=== PATIENT | female | born 1965 | race Caucasian/White ===

== ENCOUNTER → 2017-11-14 11:14 | Outpatient (CLI) | payer BC, SELFPAY ==
--- NOTE | 2017-11-14 13:43 | DI.REPORT_ITS ---
SYMPTOMS/DIAGNOSIS: CHRONIC LOW BACK PAIN, M54.6, NOTICEABLY WORSE LAST 6 MONTHS LUMBAR SPINE: AP, lateral and bilateral oblique views. There is a mild left convex curvature of the spine. No spondylolysis or spondylolisthesis is seen. Multilevel disc space narrowing is seen. There is a vacuum disc at L5-S1. Endplate osteophytes are present throughout the lumbar spine. There are degenerative changes of the facets. No acute fractures or subluxations are seen. Note is made of surgical clips in the right upper quadrant of the abdomen , likely reflecting a prior cholecystectomy. IMPRESSION: Moderate degenerative changes in the lumbar spine.
== END ==
PROVIDERS: PCP Family Medicine; Visit Provider Family Medicine
DX: M54.6 Pain in thoracic spine (principal); M51.16 Intervertebral disc disorders with radiculopathy, lumbar region
CPT/HCPCS: 72110

== ENCOUNTER → 2017-12-01 00:59 | Outpatient (CLI) | payer BC, SELFPAY ==
--- NOTE | 2017-12-01 08:50 | DI.REPORT_ITS ---
SYMPTOM/DIAGNOSIS: SCREENING, Z12.31 MAMMOGRAM: Mammograms were interpreted according to the usual protocol including computer analysis with CAD system, tomosynthesis and C view imaging. Comparison with prior examinations. Breast density B. No masses or microcalcifications are seen. There is nothing to suggest malignancy. IMPRESSION: Negative mammogram. Routine screening is recommended. Category I. MQSA ASSESSMENT OF FINDINGS: Negative. Category 1. Patient will receive a letter notifying them of these results. BI-RADS category B. There are scattered areas of fibroglandular density.
== END ==
PROVIDERS: PCP Family Medicine; Visit Provider Nurse Practitioner Family
DX: Z12.31 Encounter for screening mammogram for malignant neoplasm of breast (principal)
CPT/HCPCS: 77063; 77067

== ENCOUNTER 2018-01-02 19:45 | Outpatient (REF) | payer BC, SELFPAY ==
[2018-01-02 20:54] LABS: Cholesterol 226 mg/dL (50-200); Glucose 88 mg/dL (70-100); HDL Cholesterol 56 mg/dL (40-60); LDL CHOLESTEROL 156 mg/dL (<100); Triglyceride 137 mg/dL (30-150)
== END 2018-01-02 20:05 ==
LOC: NCHCN 19:45
PROVIDERS: PCP Family Medicine; Visit Provider Physician Assistant Medical
DX: Z00.00 Encounter for general adult medical examination without abnormal findings (principal); Z13.1 Encounter for screening for diabetes mellitus; Z13.220 Encounter for screening for lipoid disorders
CPT/HCPCS: 80061; 82947; 83721

== ENCOUNTER 2018-02-03 10:51 | Day surgery (SDC) | payer BC, SELFPAY ==
[2018-02-03 11:22] VITALS: BP 115/71; PULSE 70; RESP 16; TEMP 36.5; O2SAT 97
[2018-02-03] MEDS: Lidocaine 1% Pres-Free 5 ML VIAL (15:21)
[2018-02-03] MEDS: Bupivacaine 0.25% Pres-Free 10 ML VIAL (15:32)
--- NOTE | 2018-02-03 15:41 | W.PM.DSUDISC ---
Discharge Plan Disposition Patient Disposition: HOME Condition: Good Discharge Details Reason For Visit: TRIGGER FINGER Attending Provider: Guanaco Agarwal Primary Care Provider: Lynn Raza V Home Meds and New Rx's Prescriptions: New ibuprofen 600 mg tablet 600 mg PO TID PRNQty: 30 RF: 3 Continue ascorbic acid (vitamin C) [Vitamin C] 500 MG tablet 500 mg PO DAILY RF: 0 ydystbxlfoxm-seye-ubrqz acid [Daily Multiple] 1 EACH tablet 1 tab-cap PO DAILY RF: 0 ranitidine HCl 75 MG tablet 75 mg PO BID RF: 0 cholecalciferol (vitamin D3) 5,000 UNIT capsule 5,000 unit PO DAILY RF: 0 acetaminophen [Pain Relief Extra Strength] 500 MG tablet 1,000 mg PO PRN PRNRF: 0 omega-3 fatty acids-fish oil [Fish Oil] 1 EACH capsule 1 ea PO DAILY RF: 0 calcium carbonate [Tums] 300 MG tablet,chewable 300 mg PO PRN PRNRF: 0 Discharge Instructions Stand Alone Forms: Any Canales Finger Release, [employer]ares (DSU) Activity:: Elevate Remove Dressings/Wound Care:: 48 hours Shower/Bathe:: 48 hours Diet:: As Tolerated Discharge Orders Discharge Orders: Discharge Order (Routine); Ordered 02/03/18 Ordered By: Guanaco Agrawal DS: Diagnosis Discharge Diagnosis (1) Trigger finger, right ring finger: Status: Acute
--- NOTE | 2018-02-04 07:19 | ROE_ITS ---
Date of service: 02/03/18 Time of Service: 16:18 Operative Note DATE OF PROCEDURE: 02/03/18 PRE-OP DIAGNOSIS: Trigger Finger -right ring finger POST-OP DIAGNOSIS: same PROCEDURE: Trigger Finger Release -right ring finger SURGEON: Guanaco Agarwal ANESTHESIA: local ESTIMATED BLOOD LOSS: 5 PATHOLOGY: none sent COMPLICATIONS: None Patient was transported to: same day Patient's condition: stable Indications: I have seen Leann in clinic for symptoms of a trigger finger. The catching, clicking, locking, and pain limited function. The diagnosis of trigger finger was evident. The symptoms had not responded to conservative measures. I discussed trigger finger release with the patient. I reviewed the risks of the procedure to include, but not limited to, bleeding, infection, pain , stiffness, incomplete release, damage to nerves or vessels, continued catching , recurrence. Despite these risks, the patient elected to proceed. Findings: There was a tightened A1 claudia which was released. The flexor tendons were inspected and the patient was able to move the finger without any catching, clicking, or locking. Procedure Description: Leann was greeted in the preoperative holding area where the correct side was identified and marked. The consent was reviewed with the patient and signed. All questions were answered. Leann was taken back to the operating room. The patient was placed into the supine position on the operating room table with the right arm on an arm board. All bony prominences were well padded. No prophylactic antibiotics were administered since this was a clean, elective hand surgical case. The right arm was then prepped with Chloraprep and draped in a standard fashion with stockinette and extremity drape. A timeout to confirm correct identity, side and site, procedure, allergies, anesthesia, and medical concerns was performed. The surgical site was marked as a longitudinal incision directly over the A1 claudia of the involved digit. This was confirmed with palpation during finger flexion. This area, overlying the metacarpal head, was then anesthetized with 1 % Lidocaine. The patient tolerated this well and once the anesthetic had setup , the procedure began. A longitudinal incision was made through skin only, approximately 1cm. The deep tissues were dissected bluntly. Once the A1 claudia and flexor tendons were identified the soft tissue including neurovascular structures were retracted medially and laterally. There were no crossing structures over the A1 claudia. The proximal edge of the claudia was identified and the claudia was incised with tenotomy scissors. There was a release of the tendons once this was fully released. The tendons were then removed from the wound and inspected. Excess synovium was resected. The tendons were then returned and the patient was asked to move the finger into deep flexion and back to extension. There was no recreation of the pre- operative symptoms. The hand was then once more inspected for any A0 claudia or area of possible constriction. The wound was then irrigated and the skin was closed with a 4-0 Nylon. This was dressed with gauze and a Conform dressing. The patient tolerated the procedure well and was returned to the Same Day Surgery area in a stable condition suffering no known complication.
== END 2018-02-03 15:50 | disposition home or self-care (01) ==
PROVIDERS: PCP Family Medicine; Visit Provider Student in an Organized Health Care Education/Training Program
PROC: (CPT 26055; principal; 2018-02-03 12:30)
DX: M65.341 Trigger finger, right ring finger (principal)
CPT/HCPCS: 26055

== ENCOUNTER 2018-04-03 06:17 | Day surgery (SDC) | payer BC, SELFPAY ==
[2018-04-03 06:25] VITALS: BP 107/62; PULSE 72; RESP 16; TEMP 36.1; O2SAT 98
--- NOTE | 2018-04-03 06:30 | W.PM.DSUDISC ---
Discharge Plan Disposition Patient Disposition: HOME Condition: Good Discharge Details Reason For Visit: RRF TRIGGER Attending Provider: Guanaco Agarwal Primary Care Provider: Lynn Raza V Home Meds and New Rx's Prescriptions: Continued ascorbic acid (vitamin C) [Vitamin C] 500 MG tablet 500 mg PO DAILY RF: 0 Daily Multiple 1 EACH tablet 1 tab-cap PO DAILY RF: 0 ranitidine HCl 75 MG tablet 150 mg PO BID RF: 0 ibuprofen 600 mg tablet 600 mg PO TID PRNQty: 30 RF: 3 cholecalciferol (vitamin D3) 5,000 UNIT capsule 5,000 unit PO DAILY RF: 0 omega-3 fatty acids-fish oil [Fish Oil] 1 EACH capsule 1 ea PO DAILY RF: 0 calcium carbonate [Tums] 300 MG tablet,chewable 300 mg PO PRN PRNRF: 0 Changed acetaminophen [Pain Relief Extra Strength] 500 MG tablet 1,000 mg PO Q8H PRN PRNQty: 0 RF: 0 Discharge Instructions Stand Alone Forms: Any [place]ales Finger Release Referrals: Guanaco Agarwal MD [ [facility] STAFF PHYSICIAN] - Activity:: Elevate Remove Dressings/Wound Care:: 48 hours Shower/Bathe:: 48 hours Diet:: As Tolerated Discharge Orders Discharge Orders: Discharge Order (Routine); Ordered 04/03/18 Ordered By: Guanaco Agarwal DS: Diagnosis Discharge Diagnosis (1) Trigger finger, right ring finger: Status: Acute
[2018-04-03] MEDS: Lidocaine 1% Pres-Free 5 ML VIAL (07:32)
[2018-04-03] MEDS: Sodium Bicarbonate 50 MEQ/50 ML VIAL (07:33)
[2018-04-03] MEDS: Bupivacaine 0.5% Pres-Free 30 ML VIAL (07:51)
--- NOTE | 2018-04-03 10:23 | W.PM.OP ---
Date of service: 04/03/18 Time of Service: 08:23 Operative Note DATE OF PROCEDURE: 04/03/18 PRE-OP DIAGNOSIS: Recurrent Trigger Finger -right ring finger POST-OP DIAGNOSIS: same PROCEDURE: Right ring finger synovectomy and scar excision with residual A1 claudia release SURGEON: Guanaco Agarwal ANESTHESIA: local ESTIMATED BLOOD LOSS: 0 PATHOLOGY: none sent COMPLICATIONS: None Patient was transported to: same day Patient's condition: stable Indications: I have seen Leann in clinic for symptoms of a trigger finger. She previously underwent a trigger finger release of the right ring finger a little over 2 months ago. Initially, she had resolution of her initial symptoms. However, there is a faint click which was palpable. This continued to worsen to the point where is a painful click which was more audible and palpable. Given the worsening symptoms I was concerned about either residual A1 claudia or tenosynovitis or partial tendon tearing causing the symptoms and therefore recommended revision procedure.. The symptoms had not responded to conservative measures. I reviewed the risks of the procedure to include, but not limited to, bleeding, infection, pain, stiffness, incomplete release, damage to nerves or vessels, continued catching, recurrence. Despite these risks, the patient elected to proceed. Findings: There was a tightened A1 claudia which was released. The flexor tendons were inspected and the patient was able to move the finger without any catching, clicking, or locking. Procedure Description: Leann was greeted in the preoperative holding area where the correct side was identified and marked. The consent was reviewed with the patient and signed. All questions were answered. Leann was taken back to the operating room. The patient was placed into the supine position on the operating room table with the right arm on an arm board. All bony prominences were well padded. No prophylactic antibiotics were administered since this was a clean, elective hand surgical case. The right arm was then prepped with Chloraprep and draped in a standard fashion with stockinette and extremity drape. A timeout to confirm correct identity, side and site, procedure, allergies, anesthesia, and medical concerns was performed. The surgical site was marked within the distal palmar flexion crease over the A1 claudia of the involved digit. This was confirmed with palpation during finger flexion. This area, overlying the metacarpal head, was then anesthetized with 1% Lidocaine. The patient tolerated this well and once the anesthetic had setup, the procedure began. The deep tissues were dissected bluntly. There is quite a bit of scarring noted between the skin and the underlying tendon. The tendon was not easily identifiable and there was scarring seed attached to the lateral and medial aspects of the tendon. The tendon was identified and the scar tissue was incised and then resected. Further dissection scar tissue from the tendon structures. There is no clear residual A1 claudia except for a very small band quite proximally which may represent an A0 claudia. This was released. There was notable tenosynovitis. The synovium was resected. The tendons were withdrawn from the head and inspected. This showed a small fraying flap tear of 1 of the slips of the flexor digitorum superficialis. This was resected and trimmed. The patient move the finger multiple times there is no recurrence of the clicking. The wound was thoroughly irrigated. The wound was once again reinspected and there is no signs of constriction along the flexor tendons. The wound was then irrigated and the skin was closed with a 4-0 Nylon. This was dressed with gauze and a Conform dressing. The patient tolerated the procedure well and was returned to the Same Day Surgery area in a stable condition suffering no known complication.
== END 2018-04-03 08:10 | disposition home or self-care (01) ==
PROVIDERS: PCP Family Medicine; Visit Provider Student in an Organized Health Care Education/Training Program
PROC: (CPT 26055; principal; 2018-04-03 07:30)
DX: M65.341 Trigger finger, right ring finger (principal); M65.9 Synovitis and tenosynovitis, unspecified
CPT/HCPCS: 26145; 26055

== ENCOUNTER 2019-01-14 00:36 | Outpatient (CLI) | payer BC, SELFPAY ==
--- NOTE | 2019-01-14 08:50 | DI.MAMMO_ITS ---
EXAM: MAMMO SCREENING CLINICAL HISTORY: Screening, Z12.39 TECHNIQUE: Mammograms were interpreted according to the usual protocol including computer analysis with CAD system, tomosynthesis and C-view imaging. COMPARISON: November 2017 FINDINGS: The breasts are of moderate density with fairly symmetrical distribution of fibroglandular tissue. No dominant mass or clumped microcalcification is identified either breast. Current examination is comp ared with previous examinations including November 2017 and there has been no gross interval change any earance comparison with previous studies. IMPRESSION: No specific evidence of malignancy at this time. Routine screening examinations are suggested at year ly intervals in this age group according to the ACS ACR guidelines, category 1, breast density catego ry B. BI-RADS Cat 1 - Negative Breast Density - Category B - Scattered areas of fibroglandular density
== END 2019-01-14 00:56 ==
PROVIDERS: PCP Family Medicine; Visit Provider Nurse Practitioner Family
DX: Z12.31 Encounter for screening mammogram for malignant neoplasm of breast (principal)
CPT/HCPCS: 77063; 77067

== ENCOUNTER 2019-10-06 13:25 | Outpatient (REF) | payer BC, SELFPAY ==
[2019-10-06 20:16] LABS: Abs Immature Grans 0.01 k/cumm (0.0-0.09); Absolute Basophil Count 0.03 k/cumm (0.0-0.2); Absolute Eosinophil Count 0.12 k/cumm (0.0-0.7); Absolute Lymphocyte Count 2.54 k/cumm (1.2-3.4); Absolute Monocyte Count 0.65 k/cumm (0.11-0.7); Absolute Neutrophil Count 4.07 k/cumm (1.2-6.7); Basophils % 0.4; Eosinophils % 1.6; HCT 42.7 % (36.0-46.0); HGB 13.7 g/dL (12.0-15.5); Immature Grans % 0.1 %; Lymphocytes % 34.2; Mean Corp. HGB Concentration 32.1 g/dL (32.0-36.0); Mean Corpuscular Hemoglobin 29.3 pg (27.0-33.0); Mean Corpuscular Volume 91.2 fL (80-95); Mean Platelet Volume 11.5 fL (8.0-11.0); Monocytes % 8.8; Neutrophils % 54.9; Platelet Count 277 x1000/uL (130-400); RBC 4.68 m/cumm (4.00-5.20); RBC Distribution Width 12.5 % (11.7-14.6); White Blood Cell Count 7.42 k/cumm (4.4-10.8)
[2019-10-06 20:42] LABS: ALT 31 U/L (14-59); AST 20 U/L (15-37); Albumin 3.9 g/dL (3.4-5.0); Alkaline Phosphatase 83 U/L (46-116); Anion Gap 8.6 mmol/L (3-11); BUN 16 mg/dL (7-18); Bilirubin, Total 0.7 mg/dL (0.2-1.0); CO2 28.4 mmol/L (21.0-32.0); CREATININE 0.73 mg/dL (0.55-1.02); Calcium 9.1 mg/dL (8.5-10.1); Chloride 103 mmol/L (98-107); Glucose 91 mg/dL (74-106); Potassium 4.2 mmol/L (3.5-5.1); Sodium 140 mmol/L (136-145); TSH (W/Ref FT4) 2.01 uIU/mL (0.36-3.74); Total Protein 7.2 g/dL (6.4-8.2)
[2019-10-06 21:11] LABS: Hemoglobin A1C 5.7 % (3.8-5.6)
[2019-10-08 11:36] LABS: Lyme Ab w Rflx to Lyme Confirm Negative (Negative)
[2019-10-11 22:41] LABS: Anaplasma phagocytophilum Negative (Negative); B. miyamotoi PCR Negative (Negative); Babesia divergens/MO-1 Negative (Negative); Babesia duncani Negative (Negative); Babesia microti Negative (Negative); Ehrlichia chaffeensis Negative (Negative); Ehrlichia ewingii/canis Negative (Negative); Ehrlichia muris eauclairensis Negative (Negative)
== END 2019-10-06 13:45 ==
LOC: NCHCN 13:25
PROVIDERS: PCP Family Medicine; Visit Provider Physician Assistant Medical
DX: R53.83 Other fatigue (principal); R53.81 Other malaise
CPT/HCPCS: 80053; 87798; 83036; 84443; 85025; 86618

== ENCOUNTER 2020-01-18 00:13 | Outpatient (CLI) | payer BC, SELFPAY ==
--- NOTE | 2020-01-18 08:00 | DI.MAMMO_ITS ---
EXAM: MAMMO SCREENING CLINICAL HISTORY: screening TECHNIQUE: Mammograms were interpreted according to the usual protocol including computer analysis w [employer] CAD system, tomosynthesis and C-view imaging. COMPARISON: 2010 through 2018 FINDINGS: The breasts are composed of scattered fibroglandular densities, Breast Density category B. No suspicious masses or suspicious microcalcifications are seen. No skin thickening or abnormal axillary lymph nodes are seen. There has been no significant change from prior exams. IMPRESSION: BI-RADS Category 1, Negative mammogram Yearly screening mammography is recommended. Breast Density - Category B, scattered fibroglandular densities. A negative radiographic report should not delay biopsy if a dominant or clinically suspicious mass is present. Up to ten percent of cancers are not identified on mammography. A negative report may reinforce clinical impression. Adenosis and dense breasts may obscure an underlying neoplasm. False positive reports average 6 to 10%. Patient will receive a letter notifying them of these results.
== END 2020-01-18 00:33 ==
PROVIDERS: PCP Family Medicine; Visit Provider Nurse Practitioner Family
DX: Z12.31 Encounter for screening mammogram for malignant neoplasm of breast (principal)
CPT/HCPCS: 77063; 77067

== ENCOUNTER 2020-03-10 01:47 | Outpatient (CLI) | payer BC, SELFPAY ==
[2020-03-10 10:48] LABS: Hemoglobin A1C 5.8 % (<5.7)
[2020-03-10 11:08] LABS: Calculated LDL 137 mg/dL (<100); Cholesterol 216 mg/dL (<200); HDL Cholesterol 53 mg/dL (40-60); Triglyceride 130 mg/dL (<150)
== END 2020-03-10 02:07 ==
PROVIDERS: PCP Family Medicine; Visit Provider Physician Assistant Medical
DX: Z00.00 Encounter for general adult medical examination without abnormal findings (principal); R73.03 Prediabetes; Z13.220 Encounter for screening for lipoid disorders
CPT/HCPCS: 36415; 80061; 83036

== ENCOUNTER 2020-09-29 04:11 | Outpatient (CLI) | payer BC, SELFPAY ==
--- NOTE | 2020-09-29 08:50 | DI.RAD_ITS ---
Exam(s) XR KNEE LT 3V AP,LAT,MAYRA EXAM: XR KNEE LT 3V AP,LAT,MAYRA CLINICAL HISTORY: LT LEG PAIN, M79.605. TECHNIQUE: 2D digital imaging was performed. COMPARISON: No exams were available for comparison FINDINGS: There is xfaj-xr-wrzulojl medial femoral tibial joint space narrowing and mild periarticular spurring . There is also spurring at the articular aspect of the patella. No joint effusion is visible. IMPRESSION: Axup-qo-dmufcvdh degenerative changes. DATA REPOSITORY: RADIATION DOSE DELIVERED:
== END 2020-09-29 04:31 ==
PROVIDERS: PCP Family Medicine; Visit Provider Physician Assistant Medical
DX: M17.12 Unilateral primary osteoarthritis, left knee (principal)
CPT/HCPCS: 73562

== ENCOUNTER 2020-11-17 08:59 | Outpatient (REF) | payer BC, SELFPAY ==
[2020-11-17 15:13] LABS: C-Reactive Protein 0.43 mg/dL (0.0-0.3); Uric Acid 3.7 mg/dL (2.6-6.0)
[2020-11-20 09:13] LABS: Cyclic Citrullinated Peptide <2.5 U/mL (<5.0)
[2020-11-20 10:13] LABS: Lyme Ab w Rflx to Lyme Confirm Negative (Negative)
[2020-11-21 20:18] LABS: Anaplasma phagocytophilum Negative (Negative); B. miyamotoi PCR Negative (Negative); Babesia divergens/MO-1 Negative (Negative); Babesia duncani Negative (Negative); Babesia microti Negative (Negative); Ehrlichia chaffeensis Negative (Negative); Ehrlichia ewingii/canis Negative (Negative); Ehrlichia muris eauclairensis Negative (Negative)
== END 2020-11-17 09:00 | disposition home or self-care (01) ==
LOC: NCHCN 08:59
PROVIDERS: PCP Family Medicine; Visit Provider Physician Assistant Medical
DX: R73.03 Prediabetes (principal); R76.0 Raised antibody titer; R79.82 Elevated C-reactive protein (CRP); M25.562 Pain in left knee; M25.59 Pain in other specified joint
CPT/HCPCS: 86200; 87798; 83036; 84550; 86140; 86618

== ENCOUNTER 2020-11-29 16:10 | Outpatient (REF) | payer BC, SELFPAY ==
[2020-12-01 17:33] LABS: COVID-19 RT-PCR UVMMC Result Negative (Negative)
== END 2020-11-29 16:11 | disposition home or self-care (01) ==
LOC: NCHCN 16:10
PROVIDERS: PCP Family Medicine; Visit Provider Physician Assistant Medical
DX: Z20.822 Contact with and (suspected) exposure to COVID-19 (principal); R05 Cough
CPT/HCPCS: U0003

== ENCOUNTER 2020-12-20 01:27 | Outpatient (CLI) | payer BC, SELFPAY ==
--- NOTE | 2020-12-20 | DI.RAD_ITS ---
Exam(s) XR CHEST 2V PA LATERAL EXAM: XR CHEST 2V PA LATERAL CLINICAL HISTORY: COUGH, R05, COVID NEGATIVE 11/29/20 TECHNIQUE: 2D digital imaging was performed. COMPARISON: CR THORACIC SPINE from 01/02/2017 CR THORACIC SPINE from 01/02/2017 FINDINGS: MEDIASTINUM: Normal. HEART: Normal. PULMONARY VASCULATURE: Normal. LUNGS: Clear. PLEURAL SPACE: No pleural effusion or pneumothorax. BONE:Within normal limits for the patient's age. OTHER FINDINGS:Normal. IMPRESSION: No acute pulmonary findings. DATA REPOSITORY: RADIATION DOSE DELIVERED:
== END 2020-12-20 01:47 ==
PROVIDERS: PCP Family Medicine; Visit Provider Physician Assistant Medical
DX: R05 Cough (principal)
CPT/HCPCS: 71046

== ENCOUNTER 2021-02-27 00:46 | Outpatient (CLI) | payer BC, SELFPAY ==
--- NOTE | 2021-02-27 08:45 | DI.MAMMO_ITS ---
Exam(s) MAMMO SCREENING EXAM: MAMMO SCREENING CLINICAL HISTORY: screening TECHNIQUE: Mammograms were interpreted according to the usual protocol including computer analysis w [employer] CAD system, tomosynthesis and C-view imaging. COMPARISON: FINDINGS: The breasts are of moderate density with fairly symmetrical distribution of fibroglandular tissue. N o dominant mass or clumped microcalcification is identified in either breast. The current examinatio n is compared with previous examinations including January 2020 and there has been no gross interval change in appearance in comparison with the prior studies. IMPRESSION: No specific evidence of malignancy at this time. Routine screening examinations are suggested at yea rly intervals in this age group according to the ACS ACR guidelines. BI-RADS Category 1 - Negative Breast Density - Category B - Scattered areas of fibroglandular density
== END 2021-02-27 01:06 ==
PROVIDERS: PCP Family Medicine; Visit Provider Nurse Practitioner Family
DX: Z12.31 Encounter for screening mammogram for malignant neoplasm of breast (principal)
CPT/HCPCS: 77063; 77067

== ENCOUNTER 2021-04-05 03:00 | Outpatient (CLI) | payer BC, SELFPAY ==
[2021-04-05 08:37] LABS: Hemoglobin A1C 5.9 % (<5.7)
[2021-04-05 09:01] LABS: ALT 24 U/L (14-59); AST 15 U/L (15-37); Albumin 3.7 g/dL (3.4-5.0); Alkaline Phosphatase 77 U/L (46-116); Anion Gap 6.5 mmol/L (3-11); BUN 17 mg/dL (7-18); Bilirubin, Total 0.8 mg/dL (0.2-1.0); CO2 31.5 mmol/L (21.0-32.0); CREATININE 0.7 mg/dL (0.55-1.02); Calcium 8.8 mg/dL (8.5-10.1); Calculated LDL 168 mg/dL (<100); Chloride 104 mmol/L (98-107); Cholesterol 246 mg/dL (<200); Glucose 99 mg/dL (74-106); HDL Cholesterol 59 mg/dL (40-60); Potassium 4.2 mmol/L (3.5-5.1); Sodium 142 mmol/L (136-145); Total Protein 7.1 g/dL (6.4-8.2); Triglyceride 95 mg/dL (<150)
== END 2021-04-05 03:01 | disposition home or self-care (01) ==
LOC: LBO 03:00
PROVIDERS: PCP Family Medicine; Visit Provider Physician Assistant Medical
DX: Z00.8 Encounter for other general examination (principal)
CPT/HCPCS: 36415; 80053; 80061; 83036

== ENCOUNTER 2022-01-14 17:39 | Outpatient (REF) | payer BC, SELFPAY ==
[2022-01-14 13:25] LABS: C Diff PCR Negative (Negative)
== END 2022-01-14 17:40 | disposition home or self-care (01) ==
LOC: NCHCN 17:39
PROVIDERS: PCP Family Medicine; Visit Provider Physician Assistant Medical
DX: R10.13 Epigastric pain (principal)
CPT/HCPCS: 87493

== ENCOUNTER 2022-01-29 08:49 | Outpatient (REF) | payer BC, SELFPAY ==
[2022-01-30 15:06] LABS: Helicobacter pylori Ag, Feces Negative (Negative)
== END 2022-01-29 08:50 | disposition home or self-care (01) ==
LOC: NCHCN 08:49
PROVIDERS: PCP Family Medicine; Visit Provider Physician Assistant Medical
DX: R10.13 Epigastric pain (principal)
CPT/HCPCS: 87338

== ENCOUNTER 2022-02-27 15:11 | Outpatient (REF) | payer BC, SELFPAY ==
[2022-02-27 15:11] LABS: Bilirubin Negative (Negative); Blood Negative (Negative); Clarity Cloudy (Clear); Glucose Negative (Negative); Ketones Negative (Negative); Leukocyte Esterase Negative (Negative); Nitrite Negative (Negative); Specific Gravity >= 1.030 (1.005-1.025); Urobilinogen 0.2 EU/dL (Up TO 0.2); pH 6.5 (5-8)
== END 2022-02-27 15:12 | disposition home or self-care (01) ==
LOC: NCHCN 15:11
PROVIDERS: PCP Family Medicine; Visit Provider Physician Assistant Medical
DX: R82.998 Other abnormal findings in urine (principal); M54.89 Other dorsalgia
CPT/HCPCS: 81003; 87086

== ENCOUNTER → 2022-03-04 01:35 | Outpatient (CLI) | payer BC, SELFPAY ==
--- NOTE | 2022-03-04 08:45 | DI.MAMMO_ITS ---
Exam(s) MAMMO SCREENING EXAM: MAMMO SCREENING CLINICAL HISTORY: screening TECHNIQUE: Mammograms were interpreted according to the usual protocol including computer analysis w [employer] CAD system, tomosynthesis and C-view imaging. COMPARISON: 2012 through 2020 FINDINGS: The breasts are composed of scattered fibroglandular densities, Breast Density category B. No suspicious masses or suspicious microcalcifications are seen. No skin thickening or abnormal axillary lymph nodes are seen. There has been no significant change from prior exams. IMPRESSION: BI-RADS Category 1, Negative mammogram Yearly screening mammography is recommended. Breast Density - Category B, scattered fibroglandular densities. A negative radiographic report should not delay biopsy if a dominant or clinically suspicious mass is present. Up to ten percent of cancers are not identified on mammography. A negative report may reinforce clinical impression. Adenosis and dense breasts may obscure an underlying neoplasm. False positive reports average 6 to 10%. Patient will receive a letter notifying them of these results.
== END ==
PROVIDERS: PCP Family Medicine; Visit Provider Obstetrics & Gynecology Gynecology
DX: Z12.31 Encounter for screening mammogram for malignant neoplasm of breast (principal)
CPT/HCPCS: 77063; 77067

== ENCOUNTER → 2022-03-04 01:36 | Outpatient (CLI) | payer BC, SELFPAY ==
--- NOTE | 2022-03-04 09:00 | DI.RAD_ITS ---
Exam(s) XR CLAVICLE RT EXAM: XR CLAVICLE RT CLINICAL HISTORY: LUMP R22.9 TECHNIQUE: 2D digital imaging was performed. Two AP views. COMPARISON: CR XR CHEST 2V PA LATERAL from 12/20/2020 FINDINGS: A BB marker was placed over the air area of the palpable abnormality which lies at the superior borde r of the proximal and of the right clavicle. There is significant bony overlap in this location with ribs and spine. No abnormality is visible. There are mild degenerative changes of the AC joint and glenohumeral joint. IMPRESSION: Mild degenerative changes. No visible mass or bony erosion. DATA REPOSITORY: RADIATION DOSE DELIVERED:
== END ==
PROVIDERS: PCP Family Medicine; Visit Provider Physician Assistant Medical
DX: R22.31 Localized swelling, mass and lump, right upper limb (principal); M25.811 Other specified joint disorders, right shoulder
CPT/HCPCS: 73000

== ENCOUNTER 2022-07-20 04:54 | Emergency (ER) | payer BC, SELFPAY ==
[2022-07-20] VITALS (33 sets, daily range): BP systolic 113–141; BP diastolic 64–89; PULSE 60–79; RESP 7–24; TEMP 36.3–36.5; O2SAT 86–100
--- NOTE | 2022-07-20 04:45 | RT.EKG_ITS ---
APPROVED REPORT Exam: Resting ECG Reason for Exam: dizzy Patient Location: E HR:61 bpm ECG Measurements Heart Rate 61 AXIS SD 215 P 57 QRSd 100 QRS 30 QT 501 T 33 QTc 504 Conclusion Sinus rhythm...normal P axis, V-rate 60- 99 Prolonged SD interval...SD >210, V-rate 50- 90 sinus rhythm, normal axis, prolonged SD and QTc, non ischemic
--- NOTE | 2022-07-20 05:00 | DI.CT_ITS ---
Exam(s) CT BRAIN NECK CTA EXAM: CT BRAIN NECK CTA CLINICAL HISTORY: acute onset vertigo. TECHNIQUE: Imaging Protocol: Axial CT angiography was performed with multi-slice acquisition and mu lti-planar and/or 3D reconstructions. CONTRAST MATERIAL: Intravenous: Omnipaque 350 Contrast volume:structured data in ml COMPARISON: No exams were available for comparison FINDINGS: CTA Neck W: Aortic arch anatomy: The aortic arch anatomy is conventional and there is no significant stenosis at the origin of the great vessels off of the aortic arch. No intimal flap evident. Anterior circulation: Both common carotid arteries ascend with normal luminal diameters. At the level the carotid bulbs and proximal internal carotid arteries there is minimal plaque without hemodynamically significant stenosis evident. Posterior circulation: Both vertebral arteries originate in conventional fashion off of the subclavian arteries and there is no obvious stenosis at the origin of the vertebral arteries. Both vertebral arteries exhibit normal luminal diameters within the foramen transversarium. No evidence of intraluminal thrombus nor dissection of the vertebral arteries. Both vertebral arteries contribute to the formation of the basilar artery at the skull base. CTA Brain W: Anterior circulation: Both internal carotid arteries are patent in the skull base-carotid canals as well as within the cave rnous sinuses. The supraclinoid aspects of the ICAs are patent. Both A1 segments are patent as are the anterior cer ebral arteries and there is no evidence of aneurysm at the level of the anterior communicating artery . Both middle cerebral arteries are patent with no evidence of significant stenosis nor intraluminal th rombus. There also no aneurysms of these vessels. Posterior circulation: The basilar artery ascends in the midline. Distally it gives off patent bilateral superior cerebella r arteries. Above this level the basilar artery terminates as patent bilateral posterior cerebral arteries. There is no evidence of aneurysm at the tip of the basilar artery nor elsewhere in the iuytxu-tq-Srkx is. CT BRAIN: There is no evidence of intracranial hemorrhage, mass effect, or shift of midline structures. There are no extra-axial fluid collections. Ventricles are not enlarged or shifted. There are no ring enh ancing lesions in the brain and no abnormal meningeal enhancement. IMPRESSION: 1. Patent carotid arteries in the neck. No significant stenosis. 2. Patent vertebral arteries. 3. Patent intracranial arteries. No intraluminal thrombus nor significant stenosis. No dissection. 4. No acute intracranial findings. No intracranial hemorrhage. No territorial infarct noted. No ri ng enhancing lesions in the brain and there is no abnormal meningeal enhancement. RADIATION DOSE DELIVERED: 2,075.82mGy.cm Total DLP DATA REPOSITORY: All CT scans at this facility are submitted to the National Radiology Data Registry (NRDR) Dose Index Registry (DIR) with the [employer] (ACR). RADIATION OPTIMIZATION: All CT scans at this facility use at least one of these dose optimization te chniques: automated exposure control; mA and/or kV adjustment per patient size (includes targeted exa ms where dose is matched to clinical indication); or iterative reconstruction.
[2022-07-20 05:06] LABS: Abs Immature Grans 0.03 10^3/uL (0.0-0.06); Absolute Basophil Count 0.04 10^3/uL (0.0-0.2); Absolute Eosinophil Count 0.12 10^3/uL (0.0-0.7); Absolute Lymphocyte Count 2.98 10^3/uL (1.2-3.4); Absolute Monocyte Count 0.61 10^3/uL (0.1-0.8); Absolute Neutrophil Count 5.94 10^3/uL (1.2-6.7); Basophils % 0.4; Eosinophils % 1.2; HGB 13.5 g/dL (11.2-15.7); Immature Grans % 0.3; Lymphocytes % 30.7; MCH 29.2 pg (27.0-33.0); MCHC 32.9 % (32.0-36.0); MCV 89 fL (80-95); MPV 10.2 fL (8.0-11.0); Monocytes % 6.3; Neutrophils % 61.1; Platelet Count 246 10^3/uL (130-400); RBC 4.62 10^6/uL (3.93-5.22); RDW 12.4 % (11.7-14.6); RDW-SD 40.7 fL; WBC 9.72 10^3/uL (4.4-10.8)
--- NOTE | 2022-07-20 05:12 | W.ED.GENAD ---
Discharge Plan Discharge Details Chief Complaint: Nausea/Vomit/Diar Primary Care Provider: Lynn Raza V ED Provider: Be Gray Home Meds and New Rx's Prescriptions: No Action omeprazole 10 mg capsule,delayed release(DR/EC) 10 mg PO DAILY lrhoahj-mveo-penkt-oreg-capryl 100 mg-150 mg- 50 mg-150 mg capsule PO DAILY magnesium 250 mg tablet 250 mg PO DAILY doxycycline hyclate 100 mg tablet 100 mg PO DAILY Qty: 1 0RF ascorbic acid (vitamin C) [Vitamin C] 500 MG tablet 500 mg PO DAILY Daily Multiple 1 EACH tablet 1 tab-cap PO DAILY acetaminophen [Pain Relief ES (acetaminophen)] 500 MG tablet 1,000 mg PO Q8H PRN PRNQty: 0 0RF cholecalciferol (vitamin D3) 5,000 UNIT capsule 5,000 unit PO DAILY Fish Oil 1 EACH capsule 1 ea PO DAILY calcium carbonate [Tums] 300 MG tablet,chewable 300 mg PO PRN PRN Apple Cider Vinegar Complex 300-8.3 mg Tablet 1 tab PO DAILY Medical Decision Making 56-year-old female presents with cute onset dizziness nausea and vomiting that began around 3 AM this morning upon waking up. Feels unsteady on her feet. Denies chest pain or shortness of breath denies abdominal pain. Ate at a seafood restaurant last night with her who is currently asymptomatic. No diarrhea. Cranial nerves II through XII intact, slight lateral nystagmus to the right on examination, 5 out of 5 strength upper and lower extremities, given level of discomfort nausea have not ambulated patient at this time. Consider peripheral vertigo lower suspicion for CVA lower suspicion for foodborne illness or viral syndrome. Given age no history of vertigo in the past will obtain CT CTA head neck. Given droperidol and Zofran in route. Had some relief however currently feeling similar to earlier this morning. EKG normal sinus rhythm normal axis, does have prolonged [place] and QTc intervals. Lower suspicion for ACS PE or aortic pathology. Disposition pending reassessment after medications and imaging. 6: 48 patient feeling some relief after medications. CT CTA head neck negative. disposition pending reassessment 7: 49 patient showing improvement after medications, now able to move her head and open her eyes more completely. Patient still feeling slightly unwell and would like some time to rest. Patient to be signed out for reassessment of symptoms. Likely to be discharged home with care instructions and return precautions HPI General Date/Time Provider Initiated Documentation: 07/20/22 04:55. HPI Narrative: 56-year-old female presents with dizziness spinning sensation and unsteadiness that she noted around 3 or 4 AM this morning upon waking up. Associated with nausea and vomiting. Denies chest pain shortness of breath or abdominal pain. Ate at a seafood restaurant with her , who is currently asymptomatic. Related Data Home Medications Medication Instructions Recorded Confirmed cholecalciferol (vitamin D3) 125 5,000 unit PO DAILY 07/02/16 07/20/22 mcg (5,000 unit) capsule ascorbic acid (vitamin C) 500 mg 500 mg PO DAILY 11/21/16 07/20/22 tablet (Vitamin C) omega-3 fatty acids-fish oil 340 1 ea PO DAILY 02/24/17 07/20/22 mg-1,000 mg capsule (Fish Oil) calcium carbonate 300 mg (750 mg) 300 mg PO PRN PRN 03/03/17 07/20/22 chewable tablet (Tums) multivitamin-ferrous 1 tab-cap PO DAILY 11/24/17 07/20/22 fumarate-folic acid 18 mg-400 mcg tablet (Daily Multiple) acetaminophen 500 mg tablet (Pain 1,000 mg PO Q8H PRN PRN #0 tabs 04/03/18 07/20/22 Relief Extra Strength (acetaminophen)) omeprazole 10 mg capsule,delayed 10 mg PO DAILY 12/27/19 07/20/22 release magnesium 250 mg tablet 250 mg PO DAILY 01/25/21 07/20/22 tumeric 100 mg-brandie 150 mg-olive cap PO DAILY 01/25/21 02/05/22 50 mg-oreg 150 mg-caprylate capsule doxycycline hyclate 100 mg tablet 100 mg PO DAILY #1 tab 02/04/22 07/20/22 cider acobnnt-Y0-msvhlw-mincb4 300 1 tab PO DAILY 07/20/22 07/20/22 mg-8.3 mg tablet Previous Rx's Medication Instructions Recorded acetaminophen 500 mg tablet (Pain 1,000 mg PO Q8H PRN PRN #0 tabs 04/03/18 Relief Extra Strength (acetaminophen)) doxycycline hyclate 100 mg tablet 100 mg PO DAILY #1 tab 02/04/22 Allergies Allergy/AdvReac Type Severity Reaction Status Date / Time No Known Drug Allergies Allergy Verified 07/20/22 04:57 General Stated Complaint: Nausea/Vomit/Diar PAPI: 3 Review of Systems Narrative: Review of Systems Constitutional: negative Eyes: negative ENT: negative Cardiovascular: negative Respiratory: negative Gastrointestinal: Nausea, vomiting : negative Musculoskeletal: negative Skin: negative Neurologic: Dizziness Psych: negative PFSH All Active Problems (Updated 02/05/22 @ 22:02 by Phuong Frias MD) Hepatic steatosis (Acute) Tick bite (Acute) Internal and external bleeding hemorrhoids (Acute) Trigger finger, right ring finger (Acute) Persistent proximal symptoms after initial surgery, revision trigger release on 04/03/18 Medical History (Updated 02/05/22 @ 22:02 by Phuong Frias MD) Uterine prolapse [facility] 06/2016 Dr Frias Surgical History (Updated 01/21/18 @ 14:36 by [facility] OR) Appendectomy Cholecystectomy EGD - MAC (03/03/17) Vaginal hysterectomy (07/03/16) [facility]. R salpingectomy. Uterosacral ligament suspension. Rectocele repair. Family History Daughter Heart disease hypoplastic heart. has cardiology care at [facility] Daughter Lin syndrome has care at [facility]. 2013 9yo. doing well Social History (Updated 02/05/22 @ 22:01 by Phuong Frias MD) Smoking/Tobacco Use Status: Never Smoking risk assessment performed?: Yes Alcohol Intake: current Alcohol Intake frequency: other Details: occasional Drug use: Never Substance use type: does not use Counseling given: No Household members: spouse, children and other Details: Fabian and children Number of Children: 5 current occupation: PT Bookeeper. Busy with? family and grandchildren Seatbelt use: always History History 5 Para Hx # Term Pregnancies 5 Multiple births Hx # Pregnancies Ectopic pregnancies AB induced Hx Number of Living Children AB spontaneous Exam Narrative Exam Narrative: Physical Examination General: alert, awake, cooperative, appears uncomfortable HEENT: normocephalic, atraumatic; PERRL, EOM intact slight lateral nystagmus to right, conjunctiva normal; no nasal discharge; moist mucous membranes, oral and pharyngeal mucosa normal, tolerating secretions Neck: supple, trachea midline; full ROM Chest: normal to inspection Respiratory: normal respiratory effort, speaking in full sentences, clear to auscultation, no wheezing, rales or rhonchi Cardiac: regular rate, regular rhythm, S1S2 intact, no murmurs rubs or gallops GI: abdomen soft, non-tender, non-distended; no palpable mass or hepatosplenomegaly Skin: no lesions, rashes or trauma appreciated Neuro: AAOx3, normal speech, moving all extremities, 5 out of 5 strength upper and lower extremities, cranial nerves II through XII intact, mild lateral nystagmus to the right Psych: Appropriate mood and affect Course Vital Signs Vital signs: Vital Signs Temperature 36.3 C L 07/20/22 04:45 Pulse 77 07/20/22 04:45 Respiratory Rate 17 07/20/22 04:45 Blood Pressure 134/67 07/20/22 04:45 Pulse Oximetry 99 07/20/22 04:45 Temperature 36.3 C L 07/20/22 04:45 Temperature Source Tympanic 07/20/22 04:45 Pulse 77 07/20/22 04:45 Respiratory Rate 17 07/20/22 04:45 Respiratory Effort Normal 07/20/22 04:45 Blood Pressure 134/67 07/20/22 04:45 Blood Pressure Position Supine 07/20/22 04:45 Pulse Oximetry 99 07/20/22 04:45 Oxygen Delivery Method Room Air 07/20/22 04:45 Oxygen Flow Rate 0 07/20/22 04:45 Pain Level 0 07/20/22 04:45 Lab/Test Results Lab/Test Results: Laboratory Tests Range/Units 07/20/22 05:00 WBC (4.4-10.8) 10^3/uL 9.72 RBC (3.93-5.22) 10^6/uL 4.62 Hgb (11.2-15.7) g/dL 13.5 Hct (36.0-46.0) % 41.0 MCV (80-95) fL 89 MCH (27.0-33.0) pg 29.2 MCHC (32.0-36.0) % 32.9 RDW (11.7-14.6) % 12.4 Plt Count (130-400) 10^3/uL 246 MPV (8.0-11.0) fL 10.2 Immature Gran % 0.3 Neutrophils % 61.1 Lymphocytes % 30.7 Monocytes % 6.3 Eosinophils % 1.2 Basophils % 0.4 Nucleated RBC % (0.0-0.3) % 0.0 Absolute Neutrophils (1.2-6.7) 10^3/uL 5.94 Absolute Lymphocytes (1.2-3.4) 10^3/uL 2.98 Absolute Monocytes (0.1-0.8) 10^3/uL 0.61 Absolute Eosinophils (0.0-0.7) 10^3/uL 0.12 Absolute Basophils (0.0-0.2) 10^3/uL 0.04
[2022-07-20] MEDS: Normal Saline 1,000 ML 1000 ML IV ×2 (05:15→06:50)
[2022-07-20] MEDS: LORazepam 2 MG/ML VIAL 1 MG IVP (05:15)
[2022-07-20] MEDS: Meclizine 25 MG TAB PO (05:16)
[2022-07-20 05:25] LABS: ALT 26 U/L (14-59); AST 21 U/L (15-37); Albumin 3.5 g/dL (3.4-5.0); Alkaline Phosphatase 73 U/L (46-116); Anion Gap 10.5 mmol/L (3-11); BUN 23 mg/dL (7-18); Bilirubin, Total 0.8 mg/dL (0.2-1.0); CO2 25.5 mmol/L (21.0-32.0); CREATININE 0.7 mg/dL (0.55-1.02); Calcium 8.6 mg/dL (8.5-10.1); Chloride 105 mmol/L (98-107); Estimated GFR 100.81 (mL/min/1.73m2); Glucose 182 mg/dL (74-106); Sodium 141 mmol/L (136-145); Total Protein 7.1 g/dL (6.4-8.2)
[2022-07-20 05:34] LABS: Potassium 2.9 mmol/L (3.5-5.1)
[2022-07-20] MEDS: Omnipaque 350 MG/ML 100 ML BTL IJ (05:46)
[2022-07-20] MEDS: Normal Saline - Diluent 50 ML VIAL IJ (05:47)
[2022-07-20] MEDS: POTASSIUM CHLORIDE 20 MEQ/100 ML BAG 50 MEQ IVPB (05:53)
--- NOTE | 2022-07-20 06:07 | DI.VRAD_ITS ---
Addendum created by Kaiser Looney MD on 07/20/2022 6:16:50 AM EDT: The findings were verbally communicated via telephone conference with Be Gray at 6:16 AM EDT on 07/20/2022. The findings were acknowledged and understood. Initial report created on 07/20/2022 6:07:09 AM EDT: PROCEDURE INFORMATION: Exam: CTA Head Without And With Contrast, Arteriography Exam date and time: 07/20/2022 5:41 AM Age: 56 years old Clinical indication: Stroke-like symptoms; Visual disturbance and vomiting; Additional info: Acute onset vertigo TECHNIQUE: Imaging protocol: Computed tomographic angiography of the head without and with contrast. Exam focused on the arteries. 3D rendering (Not supervised by radiologist): MIP and/or 3D reconstructed images were created by the technologist. Radiation optimization: All CT scans at this facility use at least one of these dose optimization techniques: automated exposure control; mA and/or kV adjustment per patient size (includes targeted exams where dose is matched to clinical indication); or iterative reconstruction. Contrast material: OMNI 350; Contrast volume: 85 ml; Contrast route: INTRAVENOUS (IV); Other technique: STROKE PROTOCOL was implemented. COMPARISON: No relevant prior studies available. FINDINGS: ANTERIOR CIRCULATION: Right internal carotid artery: Intracranial segment is patent with no significant stenosis or occlusion. No aneurysm. Right middle cerebral artery: No occlusion or significant stenosis. No aneurysm. Right anterior cerebral artery: No occlusion or significant stenosis. No aneurysm. Left internal carotid artery: Intracranial segment is patent with no significant stenosis. No aneurysm. Left middle cerebral artery: No occlusion or significant stenosis. No aneurysm. Left anterior cerebral artery: No occlusion or significant stenosis. No aneurysm. POSTERIOR CIRCULATION: Right vertebral artery: No occlusion or significant stenosis. No aneurysm. Left vertebral artery: No occlusion or significant stenosis. No aneurysm. Basilar artery: No occlusion or significant stenosis. No aneurysm. Right posterior cerebral artery: No occlusion or significant stenosis. No aneurysm. Left posterior cerebral artery: No occlusion or significant stenosis. No aneurysm. HEAD: Brain: Normal. No hemorrhage. Unremarkable white matter. No mass effect. Cerebral ventricles: Normal. No ventriculomegaly. Bones/joints: Unremarkable. No acute fracture. Paranasal sinuses: Visualized sinuses are normal. No fluid levels. Mastoid air cells: Visualized mastoids are normal. No mastoid effusion. Soft tissues: Unremarkable. IMPRESSION: No large vessel occlusion. Unremarkable CT head. ASSESSMENT: ASPECTS ([place] Stroke Program Early CT Score) is 10. PROCEDURE INFORMATION: Exam: CTA Neck Without And With Contrast Exam date and time: 07/20/2022 5:41 AM Age: 56 years old Clinical indication: Stroke-like symptoms; Visual disturbance and vomiting; Additional info: Acute onset vertigo TECHNIQUE: Imaging protocol: Computed tomographic angiography of the neck without and with contrast. 3D rendering (Not supervised by radiologist): MIP and/or 3D reconstructed images were created by the technologist. Radiation optimization: All CT scans at this facility use at least one of these dose optimization techniques: automated exposure control; mA and/or kV adjustment per patient size (includes targeted exams where dose is matched to clinical indication); or iterative reconstruction. Contrast material: OMNI 350; Contrast volume: 85 ml; Contrast route: INTRAVENOUS (IV); COMPARISON: CR XR [facility] RT 03/04/2022 8:58 AM FINDINGS: Right common carotid artery: No stenosis. No dissection or occlusion. Right internal carotid artery: No stenosis of the extracranial segment. No dissection or occlusion. Right external carotid artery: No occlusion or stenosis of the origin. Left common carotid artery: No stenosis. No dissection or occlusion. Left internal carotid artery: No stenosis of the extracranial segment. No dissection or occlusion. Left external carotid artery: No occlusion or stenosis of the origin. Right vertebral artery: No stenosis. No dissection or occlusion. Left vertebral artery: No stenosis. No dissection or occlusion. Soft tissues: Normal. No significant soft tissue swelling. Bones/joints: No acute fracture. IMPRESSION: No stenosis or occlusion. REFERENCES: NASCET CRITERIA. The degree of stenosis in the cervical segment of the internal carotid artery is based on NASCET criteria. Normal is no stenosis. Mild is less than 50% stenosis. Moderate is 50-69% stenosis. Severe is 70% to 99% stenosis. Total occlusion is no detectable patent lumen. Dictated and Authenticated by: Kaiser Looney MD. Ordering:KESHAWN Lr MD
[2022-07-20] MEDS: diphenhydrAMINE 50 MG/ML VIAL IVP (06:14)
[2022-07-20] MEDS: Dexamethasone 10 MG/ML VIAL IVP (06:20)
[2022-07-20] MEDS: Lactated Ringers 1,000 ML 1000 ML IV (08:10)
[2022-07-20] MEDS: Scopolamine 1 MG/3 DAYS PATCH TD (08:18)
--- NOTE | 2022-07-20 10:01 | W.EDPROG ---
Date of service: 07/20/22 Time of Service: 10:01 Medical Decision Making pt signed out to me pending response to vertigo treatments, I did add a scopolomaine patch, patient is speaking clearly and is able to ambulate by herself and feels better, has reassuring hints exam so doubt central vertigo. She is stable for d/c, return precautions given and advised to f/u with pcp Sign Out Sign Out Data: Sign Out Comment: dizziness, vomiting, likely peripheral vertigo, improving with meds, CT negative; reassess for dispo, likely home Last updated by Be Gray MD at 07/20/22 07:51 Discharge Plan Disposition Patient Disposition: Home Discharge Details Clinical Impression: Vertigo Primary Care Provider: Lynn Raza V ED Provider: Noel Toscano Home Meds and New Rx's Prescriptions: New ondansetron 4 mg tablet,disintegrating 4 mg PO Q8H PRN (Reason: nausea and vomiting) Qty: 30 0RF meclizine 25 mg tablet 25 mg PO TID Qty: 30 0RF Continued omeprazole 10 mg capsule,delayed release(DR/EC) 10 mg PO DAILY dvkpcwz-rhhg-jtidz-oreg-capryl 100 mg-150 mg- 50 mg-150 mg capsule PO DAILY magnesium 250 mg tablet 250 mg PO DAILY doxycycline hyclate 100 mg tablet 100 mg PO DAILY Qty: 1 0RF ascorbic acid (vitamin C) [Vitamin C] 500 MG tablet 500 mg PO DAILY Daily Multiple 1 EACH tablet 1 tab-cap PO DAILY acetaminophen [Pain Relief ES (acetaminophen)] 500 MG tablet 1,000 mg PO Q8H PRN PRNQty: 0 0RF cholecalciferol (vitamin D3) 5,000 UNIT capsule 5,000 unit PO DAILY Fish Oil 1 EACH capsule 1 ea PO DAILY calcium carbonate [Tums] 300 MG tablet,chewable 300 mg PO PRN PRN cider [id number]-[id number]-aedrsz-mincb4 300-8.3 mg Tablet 1 tab PO DAILY Discharge Instructions Instructions: Vertigo (ED) Additional Instructions: Your lab work and cat scan did not show concerning findings Follow up with your primary care provider this week avoid driving if you are feeling dizzy if you feel more ill, have persistent vomiting, severe weakness or difficulty breathing return to the emergency department
== END 2022-07-20 10:12 | disposition home or self-care (01) ==
PROVIDERS: Emergency Medicine; Emergency Provider Emergency Medicine; PCP Family Medicine
DX: R42 Dizziness and giddiness (principal); R11.2 Nausea with vomiting, unspecified; R26.81 Unsteadiness on feet; H55.00 Unspecified nystagmus
CPT/HCPCS: 36415; 70496; 70498; 80053; 93005; 96361; 96374; 96375; 99285; 85025; 93010; 99284; J1100; J1200; J2060; J3480; J3490

== ENCOUNTER 2022-08-13 13:30 | Outpatient (REF) | payer BC, SELFPAY ==
[2022-08-13 16:12] LABS: Hemoglobin A1C 5.8 % (<5.7)
[2022-08-13 16:25] LABS: ALT 28 U/L (14-59); AST 19 U/L (15-37); Albumin 3.7 g/dL (3.4-5.0); Alkaline Phosphatase 79 U/L (46-116); Anion Gap 7.6 mmol/L (3-11); BUN 17 mg/dL (7-18); Bilirubin, Total 1.1 mg/dL (0.2-1.0); CO2 29.4 mmol/L (21.0-32.0); CREATININE 0.7 mg/dL (0.55-1.02); Calcium 9.1 mg/dL (8.5-10.1); Calculated LDL 147 mg/dL (<100); Chloride 104 mmol/L (98-107); Cholesterol 231 mg/dL (<200); Estimated GFR 100.81 (mL/min/1.73m2); Glucose 96 mg/dL (74-106); HDL Cholesterol 64 mg/dL (40-60); Potassium 3.9 mmol/L (3.5-5.1); Sodium 141 mmol/L (136-145); TSH (W/Ref FT4) 2.32 uIU/mL (0.36-3.74); Total Protein 7.6 g/dL (6.4-8.2); Triglyceride 100 mg/dL (<150)
== END 2022-08-13 13:31 | disposition home or self-care (01) ==
LOC: NCHCN 13:30
PROVIDERS: PCP Family Medicine; Visit Provider Physician Assistant Medical
DX: Z00.00 Encounter for general adult medical examination without abnormal findings (principal); R73.03 Prediabetes; Z13.220 Encounter for screening for lipoid disorders; Z13.29 Encounter for screening for other suspected endocrine disorder; Z13.228 Encounter for screening for other metabolic disorders
CPT/HCPCS: 80053; 80061; 83036; 84443

== ENCOUNTER 2023-01-09 09:10 | Outpatient (REF) | payer BC, SELFPAY ==
[2023-01-09 15:31] LABS: Anion Gap 7.1 mmol/L (3-11); BUN 15 mg/dL (7-18); CO2 27.9 mmol/L (21.0-32.0); CREATININE 0.7 mg/dL (0.55-1.02); Calcium 9.3 mg/dL (8.5-10.1); Chloride 104 mmol/L (98-107); Estimated GFR 100.19 (mL/min/1.73m2); Glucose 82 mg/dL (74-106); Potassium 3.7 mmol/L (3.5-5.1); Sodium 139 mmol/L (136-145)
[2023-01-09 16:24] LABS: Bacteria Few HPF (Negative); Crystals Negative HPF (Negative); Epithelial Cells Rare HPF (Negative); Mucus Trace (Negative); WBC 0-2 HPF (0-5)
[2023-01-09 16:25] LABS: C & S Indicated? C&S Done As Ordered; Casts Negative LPF (Negative)
== END 2023-01-09 09:11 | disposition home or self-care (01) ==
LOC: NCHCN 09:10
PROVIDERS: PCP Family Medicine; Visit Provider Nurse Practitioner Family
DX: R10.9 Unspecified abdominal pain (principal); M51.36 Other intervertebral disc degeneration, lumbar region
CPT/HCPCS: 80048; 81015; 87086

== ENCOUNTER → 2023-03-07 00:52 | Outpatient (CLI) | payer BC, SELFPAY ==
--- NOTE | 2023-03-07 08:00 | DI.MAMMO_ITS ---
Exam(s) MAMMO SCREENING EXAM: MAMMO SCREENING CLINICAL HISTORY: screening TECHNIQUE: Bilateral full field digital CC and MLO mammographic images were obtained with 3D tomosyn thesis and utilizing computer aided detection (CAD). COMPARISON: Available for comparison. FINDINGS: Masses/Architectural Distortion: No new or suspicious masses or areas of architectural distortion are seen. Microcalcifications: No suspicious pleomorphic-type are seen. Skin Thickening/Nipple Retraction: None. IMPRESSION: 1. No significant interval change with no specific features of malignancy noted. 2. Unless there is more urgent need, screening mammography is recommended, as per [place] [employer] guidelines. BI-RADS Category 1 - Negative Breast Density - Category B - Scattered areas of fibroglandular density Breast density category C or D implies that the patient has dense breast tissue. Dense breast tissue is very common and is not abnormal but dense breast tissue can make it harder to find cancer on a ma mmogram. Also, dense breast tissue may increase their breast cancer risk. This information about the result of the mammogram report was provided to the patient to raise their awareness. Use this report when you speak with the patient about their risks for breast cancer, which includes their family hist ory. At that time, you may recommend for more screening tests (Ultrasound or MRI) as they might be us eful based on their risk. A negative radiographic report should not delay biopsy if a dominant or clinically suspicious mass is present. Up to ten percent of cancers are not identified on mammography. A negative report may reinforce clinical impression. Adenosis and dense breasts may obscure an underlying neoplasm. False positive reports average 6 to 10%. Patient will receive a letter notifying them of these results.
== END ==
PROVIDERS: PCP Family Medicine; Visit Provider Obstetrics & Gynecology Gynecology
DX: Z12.31 Encounter for screening mammogram for malignant neoplasm of breast (principal)
CPT/HCPCS: 77063; 77067

== ENCOUNTER 2023-08-19 15:06 | Outpatient (REF) | payer BC, SELFPAY ==
[2023-08-19 15:35] LABS: Abs Immature Grans 0.01 10^3/uL (0.0-0.06); Absolute Basophil Count 0.05 10^3/uL (0.0-0.2); Absolute Eosinophil Count 0.15 10^3/uL (0.0-0.7); Absolute Monocyte Count 0.45 10^3/uL (0.1-0.8); Absolute Neutrophil Count 2.27 10^3/uL (1.2-6.7); Eosinophils % 2.9 %; HCT 41.4 % (36.0-46.0); HGB 13.5 g/dL (11.2-15.7); Immature Grans % 0.2 %; MCH 29.3 pg (27.0-33.0); MCHC 32.6 % (32.0-36.0); MCV 90 fL (80-95); MPV 11.2 fL (8.0-11.0); Monocytes % 8.6 %; Neutrophils % 43.3 %; Platelet Count 255 10^3/uL (130-400); RBC 4.61 10^6/uL (3.93-5.22); RDW 12.5 % (11.7-14.6); RDW-SD 41.1 fL; WBC 5.23 10^3/uL (4.4-10.8)
[2023-08-19 16:42] LABS: ALT 22 U/L (14-59); AST 20 U/L (15-37); Albumin 3.6 g/dL (3.4-5.0); Alkaline Phosphatase 79 U/L (46-116); Anion Gap 10.5 mmol/L (3-11); BUN 17 mg/dL (7-18); CO2 25.5 mmol/L (21.0-32.0); CREATININE 0.8 mg/dL (0.55-1.02); Calcium 8.8 mg/dL (8.5-10.1); Chloride 107 mmol/L (98-107); Estimated GFR 85.35 (mL/min/1.73m2); Glucose 121 mg/dL (74-106); Potassium 3.9 mmol/L (3.5-5.1); Sodium 143 mmol/L (136-145); Total Protein 7.2 g/dL (6.4-8.2)
== END 2023-08-19 15:07 | disposition home or self-care (01) ==
LOC: NCHCN 15:06
PROVIDERS: PCP Family Medicine; Visit Provider Physician Assistant Medical
DX: R73.03 Prediabetes (principal); K76.0 Fatty (change of) liver, not elsewhere classified
CPT/HCPCS: 80053; 83036; 85025

== ENCOUNTER 2024-03-10 01:06 | Outpatient (CLI) | payer BC, SELFPAY ==
--- NOTE | 2024-03-10 06:45 | DI.MAMMO_ITS ---
Exam(s) MAMMO SCREENING EXAM: MAMMO SCREENING CLINICAL HISTORY: screening,z12.39 TECHNIQUE: Mammograms were interpreted according to the usual protocol including computer analysis w [employer] CAD system, tomosynthesis and C-view imaging. COMPARISON: 2015 through 2022 FINDINGS: The breasts are composed of scattered fibroglandular densities, Breast Density category B. No suspicious masses or suspicious microcalcifications are seen. No skin thickening or abnormal axillary lymph nodes are seen. There has been no significant change from prior exams. IMPRESSION: BI-RADS Category 1, Negative mammogram Yearly screening mammography is recommended. Breast Density - Category B, scattered fibroglandular densities. A negative radiographic report should not delay biopsy if a dominant or clinically suspicious mass is present. Up to ten percent of cancers are not identified on mammography. A negative report may reinforce clinical impression. Adenosis and dense breasts may obscure an underlying neoplasm. False positive reports average 6 to 10%. Patient will receive a letter notifying them of these results.
== END 2024-03-10 01:26 ==
LOC: DI 01:06
PROVIDERS: PCP Family Medicine; Visit Provider Obstetrics & Gynecology Gynecology
DX: Z12.31 Encounter for screening mammogram for malignant neoplasm of breast (principal); R92.323 Mammographic fibroglandular density, bilateral breasts
CPT/HCPCS: 77063; 77067

== ENCOUNTER 2024-08-23 11:51 | Outpatient (REF) | payer OTHER, SELFPAY ==
[2024-08-23 16:56] LABS: Abs Immature Grans 0.01 10^3/uL (0.0-0.06); Absolute Basophil Count 0.04 10^3/uL (0.0-0.2); Absolute Eosinophil Count 0.14 10^3/uL (0.0-0.7); Absolute Lymphocyte Count 2.11 10^3/uL (1.2-3.4); Absolute Monocyte Count 0.53 10^3/uL (0.1-0.8); Absolute Neutrophil Count 3.32 10^3/uL (1.2-6.7); Basophils % 0.7 %; Eosinophils % 2.3 %; HCT 43.7 % (36.0-46.0); HGB 14.1 g/dL (11.2-15.7); Immature Grans % 0.2 %; Lymphocytes % 34.3 %; MCH 29.5 pg (27.0-33.0); MCHC 32.3 % (32.0-36.0); MCV 91 fL (80-95); MPV 11.2 fL (8.0-11.0); Monocytes % 8.6 %; Neutrophils % 53.9 %; Platelet Count 272 10^3/uL (130-400); RBC 4.78 10^6/uL (3.93-5.22); RDW 12.2 % (11.7-14.6); RDW-SD 41.1 fL; WBC 6.15 10^3/uL (4.4-10.8)
[2024-08-23 17:24] LABS: Hemoglobin A1C 5.7 % (<5.7)
[2024-08-23 17:32] LABS: ALT 21 U/L (14-59); AST 20 U/L (15-37); Albumin 3.6 g/dL (3.4-5.0); Alkaline Phosphatase 87 U/L (46-116); Anion Gap 9.3 mmol/L (3-11); BUN 16 mg/dL (7-18); CO2 25.7 mmol/L (21.0-32.0); CREATININE 0.8 mg/dL (0.55-1.02); Calculated LDL 147 mg/dL (<100); Chloride 105 mmol/L (98-107); Cholesterol 230 mg/dL (<200); Estimated GFR 84.82 (mL/min/1.73m2); Glucose 117 mg/dL (74-106); HDL Cholesterol 59 mg/dL (>or=50); Potassium 3.8 mmol/L (3.5-5.1); Sodium 140 mmol/L (136-145); Total Protein 7.4 g/dL (6.4-8.2); Triglyceride 124 mg/dL (<150)
== END 2024-08-23 11:52 | disposition home or self-care (01) ==
LOC: NCHCN 11:51
PROVIDERS: PCP Family Medicine; Visit Provider Physician Assistant Medical
DX: R73.03 Prediabetes (principal); K76.0 Fatty (change of) liver, not elsewhere classified; Z13.6 Encounter for screening for cardiovascular disorders
CPT/HCPCS: 80053; 80061; 83036; 85025

== ENCOUNTER → 2025-03-15 00:33 | Outpatient (CLI) | payer OTHER, SELFPAY ==
--- NOTE | 2025-03-15 07:30 | DI.MAMMO_ITS ---
Exam(s) MAMMO SCREENING EXAM: MAMMO SCREENING CLINICAL HISTORY: screening,z12.39 TECHNIQUE: Mammograms were interpreted according to the usual protocol including computer analysis with CAD system, tomosynthesis and C-view imaging. COMPARISON: 2015 through 2023 FINDINGS: The breasts are composed of scattered fibroglandular densities, Breast Density category B. No suspicious masses or suspicious microcalcifications are seen. No skin thickening or abnormal axillary lymph nodes are seen. There has been no significant change from prior exams. IMPRESSION: BI-RADS Category 1, Negative mammogram Yearly screening mammography is recommended. Breast Density - Category B - There are scattered areas of fibroglandular density. Breast density Category C or D implies that the patient has dense breast tissue. Dense breast tissue can make it harder to find cancer on a mammogram. Dense breast tissue is also associated with an increased risk of breast cancer. This information about the result of the mammogram report was provided to the patient to raise their awareness. Use this report when you speak with the patient about their risks for breast cancer, which includes their family history. At that time, you may recommend additional screening tests (Ultrasound or MRI) as these tests may add significant information. A negative radiographic report should not delay biopsy if a dominant or clinically suspicious mass is present. Up to ten percent of cancers are not identified on mammography. A negative report may reinforce clinical impression. Adenosis and dense breasts may obscure an underlying neoplasm. False positive reports average 6 to 10%. Patient will receive a letter notifying them of these results.
== END ==
LOC: DI 00:33
PROVIDERS: PCP Family Medicine; Visit Provider Obstetrics & Gynecology
DX: Z12.31 Encounter for screening mammogram for malignant neoplasm of breast (principal); R92.323 Mammographic fibroglandular density, bilateral breasts
CPT/HCPCS: 77063; 77067

== ENCOUNTER 2025-03-22 06:17 | Day surgery (SDC) | payer OTHER, SELFPAY ==
--- NOTE | 2025-03-21 17:26 | W.ANESPRE ---
General Info Date of Service Date Performed: 03/22/25 Height: 5 ft 7.75 in Weight: 92.59 kg Body Mass Index (BMI): 31.2 Surgical Procedure: Operation Date: 03/22/25 07:40 Proposed Procedure Side Surgeon p Herniorrhaphy Inguinal w/Mesh Right Donaldo Liu MD Meds Allergies and Home Medications Allergies Allergy/AdvReac Type Severity Reaction Status Date / Time No Known Allergies Allergy Verified 03/22/25 06:25 Home Medication ?Medication ?Instructions ?Recorded cholecalciferol (vitamin D3) 125 5,000 unit PO DAILY 07/02/16 mcg (5,000 unit) capsule ascorbic acid (vitamin C) 500 mg 500 mg PO DAILY 11/21/16 tablet (Vitamin C) omega-3 fatty acids-fish oil 340 1 ea PO DAILY 02/24/17 mg-1,000 mg capsule (Fish Oil) multivitamin-ferrous 1 tab-cap PO DAILY 11/24/17 fumarate-folic acid 18 mg-400 mcg tablet (Daily Multiple) acetaminophen 500 mg tablet (Pain 1,000 mg (2 x 500 mg) PO Q8H PRN 04/03/18 Relief Extra Strength PRN #0 tabs (acetaminophen)) omeprazole 10 mg capsule,delayed 10 mg PO DAILY 12/27/19 release magnesium 250 mg tablet 250 mg PO DAILY 01/25/21 turmeric 100 mg-brandie 150 1 cap PO DAILY 01/25/21 mg-olive 50 mg-oreg 150 mg-capryl capsule cider [id number]-[id number]-[id number] 300 1 tab PO DAILY 07/20/22 mg-8.3 mg tablet coenzyme Q10 100 mg capsule 100 mg PO DAILY 02/12/24 (CoQ-10) Current Visit Medications: Current Medications Generic Name Dose Route Start Last Admin Trade Name Freq PRN Reason Stop Dose Admin Acetaminophen 1,000 mg 03/22/25 06:00 Acetaminophen 500 Mg Tab PO 03/22/25 23:59 PREOP JACI Celecoxib 200 mg 03/22/25 06:00 Celecoxib 200 Mg Cap PO 03/22/25 23:59 PREOP JACI Gabapentin 600 mg 03/22/25 06:00 Gabapentin 300 Mg Cap PO 03/22/25 23:59 PREOP JACI Ringer's Solution 1,000 mls @ 80 mls/hr 03/22/25 06:00 IV 03/22/25 23:59 INFUSION JACI Cefazolin Sodium/Dextrose 2 gm in 50 mls @ 100 mls/hr 03/22/25 06:00 Ancef Duplex IVPB 03/22/25 23:59 PREOP JACI Sodium Chloride 0 ml 03/22/25 06:00 Normal Saline Flush 10 Ml Syr IV 03/22/25 23:59 PRN PRN Sodium Chloride 0 ml 03/22/25 06:00 Normal Saline 10 Ml Vial IJ 03/22/25 23:59 DIRECTED PRN Sterile Water 0 ml 03/22/25 06:00 Water,Injection,Sterile 10 Ml Vial IJ 03/22/25 23:59 DIRECTED PRN PFSH Active Problems Active Problems: Problem Status Onset Code LADAN (obstructive sleep apnea) Chronic G47.33 Anxiety disorder Acute F41.9 Right inguinal hernia Acute K40.90 Pelvic fullness in female Acute R19.00 Vaginal dryness, menopausal Acute N95.1 Hepatic steatosis Acute K76.0 Tick bite Acute W57.XXXA Internal and external bleeding hemorrhoids Acute K64.4, K64.8 Trigger finger, right ring finger Acute M65.341 Medical History Medical History Follicular cyst of skin Umbilical hernia Non-ulcer dyspepsia Menstrual migraine Uterine prolapse TVH 06/2016 Dr Frias Surgical History Surgical History Vaginal hysterectomy (07/03/16) [facility]. R salpingectomy. Uterosacral ligament suspension. Rectocele repair. EGD - MAC (03/03/17) Cholecystectomy Appendectomy Tobacco Smoking/Tobacco Use Status: Never Passive smoking exposure: No Alcohol Alcohol Intake: current Alcohol intake frequency: holidays/special occasions only Details: occasional Substance Use Substance use: Never Substance use type: does not use Prental History History 5 Para Hx # Term Pregnancies 5 Multiple births Hx # Pregnancies Ectopic pregnancies AB induced Hx Number of Living Children AB spontaneous Past Pregnancies Del. Date GA/Weeks # Preg Succ Route Wgt Sex Labor Lgth Anesthesia Location Prov Complic 06/10/86 40 No Yes vaginal 3713.788 g Male [facility] 01/30/89 40 No Yes vaginal 3444.467 g Female [facility] 02/07/91 40 No Yes vaginal 3713.788 g Female [facility] 05/14/98 40 No Yes vaginal 3713.788 g Female [facility] 02/23/03 40 No Yes vaginal 2622.331 g Female nv Vital Signs and Lab Results Vital Signs Most Recent Vital Signs in EMR: Temp Pulse Resp BP Pulse Ox 36.5 C 70 14 116/77 99 03/22/25 06:38 03/22/25 06:38 03/22/25 06:38 03/22/25 06:38 03/22/25 06:38 Imaging and Studies Imaging and Studies Study information below may be from another EMR and interpreted by another provider. Please see original notes in EMR for more complete details. EKG Summary: 07/20/22 Exam: Resting ECG Reason for Exam: dizzy Patient Location: E HR:61 bpm ECG Measurements Heart Rate 61 AXIS WV 215 P 57 QRSd 100 QRS 30 QT 501 T33 QTc 504 Conclusion Sinus rhythm...normal P axis, V-rate 60- 99 Prolonged WV interval...WV >210, V-rate 50- 90 sinus rhythm, normal axis, prolonged WV and QTc, non ischemic Anesthesia Assessment and Plan Anesthesia History Personal History: No History of Anesthesia Complications Family History: No Family History of Anesthesia Complications Exercise Tolerance Exercise Tolerance: Metabolic Equivalents>4 Pertinent Negatives Pertinent Negatives: No Major Cardiovascular Symptoms or Complaints, No Major Pulmonary Symptoms or Complaints and No History of CVA/TIA Cardiac & Pulmonary Exam Cardiac Exam: Normal S1/S2 Heart Sounds Pulmonary Exam: Clear Bilateral Breath Sounds Implantable Cardiac Device Does patient have a Pacemaker or an ICD?: No Airway Exam Known Difficult Airway: No Mallampati Class: 3 Mouth Opening: Normal (> 3cm) Thyromental Distance: Greater than 3 cm Neck Range of Motion: Full ROM Neck Circumference: Normal Teeth Condition: Normal Dentition ASA Classification ASA Score: ASA 2 Emergency Case?: No NPO Status NPO Status: NPO Clears >2 hours, Solids >8 hours Anesthesia Plan Resuscitation Status: Full Code Anesthesia Technique: General Anesthesia Airway Planned: Endotracheal Tube Pain Management: Surgeon and patient request nerve block Monitors Used: Standard Monitors
--- NOTE | 2025-03-21 19:31 | W.PM.DSUDISC ---
Date of service: 03/22/25 Discharge Plan Disposition Patient Disposition: Home Condition: Good Discharge Details Reason For Visit: Right inguinal hernia repair Attending Provider: Donaldo Liu Primary Care Provider: Lynn Raza V Home Meds and New Rx's Prescriptions: New tramadol 50 mg tablet 50 mg PO Q8H PRNQty: 9 0RF Rx Instructions: Take 1 tablet by mouth up to every 8 hours if you need it for severe pain Continued omeprazole 10 mg capsule,delayed release(DR/EC) 10 mg PO DAILY [id number]-oreg-capry 100 mg-150 mg- 50 mg-150 mg capsule 1 cap PO DAILY magnesium 250 mg tablet 250 mg PO DAILY coenzyme Q10 [CoQ-10] 100 mg capsule 100 mg PO DAILY ascorbic acid (vitamin C) [Vitamin C] 500 MG tablet 500 mg PO DAILY Daily Multiple 1 EACH tablet 1 tab-cap PO DAILY acetaminophen [Pain Relief ES (acetaminophen)] 500 MG tablet 1,000 mg PO Q8H PRN PRNQty: 0 0RF cholecalciferol (vitamin D3) 5,000 UNIT capsule 5,000 unit PO DAILY Fish Oil 1 EACH capsule 1 ea PO DAILY cider [id number] 300-8.3 mg Tablet 1 tab PO DAILY Discharge Instructions Instructions: Groin Hernia Repair, Open Surgery Additional Instructions: Leann, it was nice to see you today, and I hope you have a quick and uneventful recovery as you transition home. Things went very smoothly. I did find, and repair an inguinal hernia in the groin, just as the ultrasound depicted. From a technical standpoint, nothing was out of the ordinary. I used permanent mesh material as we discussed in the office, so this should provide a long-term durable repair to the hernia defect. Hopefully, it also provide some relief of the discomfort you experience. Expect to get some bruising over the incisions, and perhaps down onto your groin and thigh. That is extremely common and nothing to worry about. If you notice the incision turning bright red, or any thick discharge coming from the incision, please let me know. I do not anticipate that happening, but there are certainly things we can do to intervene if necessary. As you already know, be careful with your lifting over the next week or 2. Avoid shoveling any heavy snow. You should be up and walking around, getting a little bit of basic exercise more and more each day. When you are resting, try to lay flat, or keep your pelvis slightly elevated to help reduce swelling. If you need anything at all, please do not hesitate to call, otherwise I look forward to seeing you in the office. 1. Resume all of your regular medications. 2. Use ice packs over the incisions to help with pain and swelling. 3. Alternate over the counter tylenol and ibuprofen every 6 hours for the first 2 days, then use them as needed. Use the prescription for tramadol if needed for more severe pain. 4. Leave bandage in place for 24 hours, then remove. 5. Shower with warm soapy water. Pat dry. Feel free to replace the bandaid if you prefer to cover the incision. 6. No soaking or tub baths until I see you in the office. 7. No heavy lifting until I see you in the office. 8. Call the office (or go directly to the emergency room after hours) if you notice any of the following: Develop chills (warm to touch), or if you have a thermometer and your temperature is above 101 Difficulty breathing or difficultly swallowing Persistent vomiting Any bleeding ? exceeding one tablespoon 9. Call your physician if the site where your intravenous was started becomes red, swollen, painful, and warm to touch. Stand Alone Forms: Anesthesia Discharge Inst., [employer] (DSU), Portal Information Referrals: Donaldo Liu MD [ [facility] STAFF PHYSICIAN, Surgery] - 04/11/25 8:30 am Activity:: no heavy lifting Remove Dressings/Wound Care:: 24 hours Shower/Bathe:: 24 hours Diet:: As Tolerated Discharge Orders Discharge Orders: Discharge Order (Routine); Ordered 03/21/25 Ordered By: Donaldo Liu DS: Diagnosis Discharge Diagnosis (1) Right inguinal hernia: Status: Acute Asessment and Plan: Outpatient follow-up
--- NOTE | 2025-03-21 19:35 | ROE_ITS ---
Operative Note Operative Note PRE-OP DIAGNOSIS: Right sided inguinal hernia POST-OP DIAGNOSIS: same PROCEDURE: open right inguinal hernia repair with mesh SURGEON: Donaldo Liu AFTER SCHOOL TEACHER: Vika Hernandez ANESTHESIA TYPE: Local By Surgeon and General LMA/ETT Refer to Anesthesia Record ESTIMATED BLOOD LOSS: 25 COMPLICATIONS: None Patient was transported to: PACU Patient's condition: stable Implants: Bard PerFix light large plug and patch Indications: Leann is a 59-year-old woman with right groin and flank pain. She has an ultrasound that confirms the presence of a right inguinal hernia. Findings: Right sided indirect inguinal hernia Procedure Description: I began by confirming the correct site with Leann. We then moved back to the operating room, and she was assisted onto the OR table. Care was taken to ensure that she was padded and supported appropriately. General anesthesia was initiated, and the anesthesia team provide a right sided ultrasound-guided tap block. The surgical site was then prepped and draped in the usual fashion. I began by making an oblique incision over the right inguinal region. I dissected down through the skin to the deep fascia. Next, I incised the fascia along the length of the inguinal canal to the external ring. I then carefully identified the ilioinguinal nerve and sharply divided. Once this was complete, I bluntly dissected the shelving edge of the inguinal ligament down towards the pubic tubercle. Here, I encircled the round ligament and inguinal sac, and secured it with a Shirlene drain. I carefully dissected the hernia sac off of the round ligament, and reduced it back into the preperitoneal space. This was an indirect inguinal hernia, consistent with what was seen on the ultrasound. I used a large mesh plug to obliterate the internal ring. I fixed in place with interrupted Prolene stitches. Next, I buttressed the posterior floor of the inguinal canal with a large mesh patch. I started by fixing it to the pubic tubercle. Next, I used Prolene sutures to affix it to the shelving edge of the inguinal ligament and the conjoined tendon. Laterally I tacked it to the internal oblique fascia and reconstructed an internal ring without any strain on the round ligament which was preserved. Once this was complete, I irrigated the surgical field. It appeared hemostatic. I then closed the anterior portion of the fascia to reconstruct the front wall of the inguinal canal. I did this with interrupted Vicryl stitches. Once again, I irrigated the surgical field and inspected for hemostasis. Finally, I approximated the superficial fascia and the deep layers of the skin with absorbable suture. Skin was closed with absorbable sutures. Bandages were applied, the patient was awakened and transferred to the recovery unit. Date of Procedure: 03/22/25
[2025-03-22] VITALS (17 sets, daily range): BP systolic 85–116; BP diastolic 52–77; PULSE 49–77; RESP 10–22; TEMP 36–36.7; O2SAT 93–100; BMI 31.2
[2025-03-22] MEDS: Lactated Ringers 1,000 ML 80 ML IV (06:54)
[2025-03-22] MEDS: Celecoxib 200 MG CAP PO (06:59)
[2025-03-22] MEDS: Acetaminophen 500 MG TAB 1000 MG PO (07:00)
[2025-03-22] MEDS: Gabapentin 300 MG CAP 600 MG PO (07:29)
[2025-03-22] MEDS: ceFAZolin 2 GM/50 ML BAG IVPB (07:41)
[2025-03-22] MEDS: Bupivacaine 0.5% Pres-Free W/EPI 30 ML VIAL (08:09)
--- NOTE | 2025-03-22 08:26 | W.ANESNERVE ---
Nerve Block Single Injection Procedure Date and Time Date Performed: 03/22/25 Procedure Start: 07:54 Location Where Procedure Performed Procedure Location: Operating Room Procedure Stop: 08:01 Reason Performed: Postoperative Analgesia Requesting Provider: Donaldo Liu Timeout Performed Timeout Performed: Yes Monitoring Used ECG, Blood Pressure, SpO2, ETCO2 and See EMR for corresponding vital signs Sterility Sterility: Hand Hygiene, Surgical Cap, Surgical Mask, Sterile Gloves and Chlorhexidine Sedation Given During Procedure Sedation Given (Indicate Dose Given): No Sedation given Patient Mental Status Patient Mental Status: Performed under general anesthesia Nerve Block 1st Nerve Block: Laterality: Right Block Type: TAP Unilateral Ultrasound Image Saved?: Yes Needle / Catheter Used: 120mm SonoPlex II Local Anesthetic Bolus (Indicate Dose Given): Bupivacaine 0.25% Dose:: 10ml and Exparel Dose:: 10ml Additives (Indicate Dose Given): None Ultrasound: Sterile probe cover and gel used Nerve Stimulator: Not Used Paresthesia: None Procedure Tolerated: No Complications Procedure Outcome: Successful Performed By: Lindsey Jacob Supervised By: Noel Jones
--- NOTE | 2025-03-22 09:12 | W.ANESPOSTOP ---
Postoperative Evaluation Date, Time and Location Date Performed: 03/22/25 Time Performed: 09:12 Vital Signs Most Recent Imported Vital Signs: Most Recent Vital Signs Temp Pulse Resp BP Pulse Ox 36.5 C 70 14 116/77 99 03/22/25 06:38 03/22/25 06:38 03/22/25 06:38 03/22/25 06:38 03/22/25 06:38 Pain Score Most Recent Pain Score: Most Recent Pain Score Pain Level 0 03/22/25 06:38 Assessment Mental Status: Awake (Alert & Oriented to Patient Baseline) Airway and Respiratory Function: Patent airway with normal (patient baseline) respiratory exam Cardiovascular Function: Hemodynamically Stable and Hemodynamically Unstable (See Explanation) Hydration Status: Adequately Hydrated Nausea & Vomiting: No Nausea or Vomiting Pain: Pt. Denies Any Pain Peripheral Nerve Block: Regional nerve block not resolved at time of post operative discharge
[2025-03-22] MEDS: fentaNYL 100 MCG/2 ML VIAL IVP ×2 (09:18→09:30)
--- NOTE | 2025-03-22 09:21 | W.ANESPOSTOP ---
Postoperative Evaluation Date, Time and Location Date Performed: 03/22/25 Time Performed: 09:10 Patient Location: PACU Vital Signs Most Recent Imported Vital Signs: Most Recent Vital Signs Temp Pulse Resp BP Pulse Ox 36.7 C 70 14 116/77 99 03/22/25 09:03 03/22/25 06:38 03/22/25 06:38 03/22/25 06:38 03/22/25 06:38 Most Recent Vital Signs Temp Pulse Resp BP Pulse Ox 36.5 C 70 14 116/77 99 03/22/25 06:38 03/22/25 06:38 03/22/25 06:38 03/22/25 06:38 03/22/25 06:38 Pain Score Most Recent Pain Score: Most Recent Pain Score Pain Level 0 03/22/25 06:38 Assessment Mental Status: Awake (Alert & Oriented to Patient Baseline) Airway and Respiratory Function: Patent airway with normal (patient baseline) respiratory exam Cardiovascular Function: Hemodynamically Stable Hydration Status: Adequately Hydrated Nausea & Vomiting: No Nausea or Vomiting Pain: Pt. Denies Any Pain Peripheral Nerve Block: Regional nerve block not resolved at time of post operative discharge
[2025-03-22] MEDS: traMADol 50 MG TAB PO (10:19)
== END 2025-03-22 11:04 | disposition home or self-care (01) ==
LOC: SUR 06:17
PROVIDERS: PCP Family Medicine; Visit Provider Surgery
PROC: (CPT 49505; principal; 2025-03-22 07:30)
DX: K40.90 Unilateral inguinal hernia, without obstruction or gangrene, not specified as recurrent (principal)
CPT/HCPCS: 49505; 64486; C1781; J0665; J0666; J0690; J1100; J1885; J2003; J2371; J2405; J2704; J3010